=== PATIENT | female | born 1985 | race Caucasian/White ===

== ENCOUNTER → 2018-04-11 | Outpatient (CLI) | payer OTHER ==
[2015-12-21 13:24] VITALS: BMI 26.4
[~2018-04-11] MED LIST: ACE3 PO; CALC-515 PO; CEPH250C37 PO; DAR100 PO; FAMO20TA28 PO; FLUC150T40 PO; HYDR-385 PO; IBUP600T22 PO; IBUP800T37 PO; LOR5 PO; N; NITR-106 PO; PREN-127 PO; VENL37.514 PO
--- NOTE | 2018-04-11 15:03 | RADIOLOGY IMAGING REPORT ---
FACILITY: [facility] PATIENT NAME: Caty Askew : 1985 MR: [id number] V: [id number] EXAM DATE: ORDERING PHYSICIAN: CATHY ROBRET TECHNOLOGIST: Location: [facility] Patient: Caty Askew : 1985 Visit/Account:[id number] Date of Sevice: 04/11/2018 EXAMINATION: Abdominal radiograph/KUB single view HISTORY: History of renal calculi. COMPARISON: KUB from 12/22/2013. FINDINGS: 2 AP supine views of the abdomen are obtained. Lines/tubes: None. Bowel gas pattern: Normal. Soft tissues: There are no calcifications overlying either renal fossa, expected ureteral course or the pelvis. There are surgical clips in the right upper quadrant and an IUD in the pelvis. Bony structures: Negative. Visualized lung bases: Negative. IMPRESSION: No radiopaque renal stones. Report Dictated By: Christine Sanz MD at 04/11/2018 2:57 PM Report E-Signed By: Christine Sanz MD at 04/11/2018 2:58 PM WSN:[id number]
== END ==
LOC: RAD 14:11
PROVIDERS: ATTEND Urology
DX: Z87.442 Personal history of urinary calculi (principal)
CPT/HCPCS: 74018